=== PATIENT | male | born 1995 | race Caucasian/White ===

== ENCOUNTER 2020-11-24 20:13 | Emergency (ER) | payer OTHER ==
[~2020-11-24] VITALS: Ht 175.3 cm; Wt 117.9 kg
[2020-11-24] MEDS ORDERED: ABILIFY MAINTE300 MG IM (20:42)
[2020-11-24] MEDS ORDERED: PAXIL20 MG PO (20:42)
[2020-11-24] MEDS ORDERED: PROAIR HFA8.5 GM INH (20:43)
[2020-11-24 20:44] LABS: HEMOGLOBIN 15.5 gm/dL (14.0-18.0); MCH 31.8 pg (26.0-34.0); MCHC 33.6 g/dL (28.0-37.0); MCV 94.6 fL (80.0-100.0); RBC 4.86 mil/uL (4.50-6.00); RDW 13.5 % (10.5-14.5); WBC 9.1 thou/uL (4.0-11.0)
[2020-11-24] MEDS ORDERED: TUMS200 MG PO (20:45)
[2020-11-24] MEDS ORDERED: CLINDAMYCIN 1% TOP (20:47)
[2020-11-24] MEDS ORDERED: CLONAZEPAM 0.50.5 M1 PO (20:48)
[2020-11-24] MEDS ORDERED: DEPAKOTE250 MG PO (20:48)
[2020-11-24] MEDS ORDERED: FLONASE 0.05%50 MCG NARES (20:49)
[2020-11-24] MEDS ORDERED: LACTAID3000 UNI1 PO (20:50)
[2020-11-24] MEDS ORDERED: MILK OF MA400 MG/5 M PO (20:50)
[2020-11-24] MEDS ORDERED: ZYPREXA5 MG PO (20:51)
[2020-11-24 20:52] LABS: AMP/METHAMP Negative (Negative); BARBITURATES Negative (Negative); BENZODIAZEPINES Negative (Negative); COCAINE Negative (Negative); METHADONE Negative (Negative); OPIATES Negative (Negative); PCP Negative (Negative)
[2020-11-24] MEDS ORDERED: HALDOL5 MG/1 ML IM (20:53)
[2020-11-24] MEDS ORDERED: ZYPREXA IM (20:53)
[2020-11-24] MEDS ORDERED: ATIVAN2 MG/1 ML IM (20:54)
[2020-11-24] MEDS ORDERED: NICOTINE TRANSD14 M1 TRANSDERM (20:54)
[2020-11-24 20:55] LABS: ANION GAP 8 mmol/L (7-16); BUN 17 mg/dL (7-18); CALCIUM 8.9 mg/dL (8.5-10.1); CHLORIDE 107 mmol/L (98-107); CO2 27 mmol/L (21-32); CREATININE 1.4 mg/dL (0.7-1.3); GLUCOSE 75 mg/dL (74-106); POTASSIUM 3.8 mmol/L (3.5-5.1); SODIUM 142 mmol/L (136-145)
[2020-11-24] MEDS ORDERED: OMEPRAZOLE 20 M20 M1 PO (20:55)
[2020-11-24] MEDS ORDERED: GAS RELIEF80 MG PO (20:55)
[2020-11-24] MEDS ORDERED: ULTRAM 50MG TAB50 MG PO (20:57)
[2020-11-24] MEDS ORDERED: DESYREL150 MG PO (20:58)
[2020-11-24] MEDS ORDERED: TYLENOL325 MG PO (20:59)
[2020-11-24 21:01] LABS: ALBUMIN 3.9 g/dL (3.4-5.0); SALICYLATE < 2.8 mg/dL (2.8-20.0); SGOT 31 U/L (15-37); SGPT 19 U/L (16-63); TOTAL BILIRUBIN 0.3 mg/dL (0.2-1.0); TOTAL PROTEIN 6.8 g/dL (6.4-8.2)
[2020-11-24 22:02] VITALS: BP 109/63
== END 2020-11-24 22:03 | disposition short-term general hospital (02) ==
LOC: ER 20:13
PROVIDERS: Nurse Practitioner Family
DX: F91.9 Conduct disorder, unspecified (principal); Z79.2 Long term (current) use of antibiotics; Z79.899 Other long term (current) drug therapy; Z91.013 Allergy to seafood

== ENCOUNTER 2021-05-18 18:42 | Emergency (ER) | payer OTHER ==
[~2021-05-18] VITALS: Ht 182.9 cm; Wt 86.2 kg
[~2021-05-18 18:42] MED LIST: ABILIFY MAINTE300 MG IM; ATIVAN2 MG/1 ML IM; CLINDAMYCIN 1% TOP; CLONAZEPAM 0.50.5 M1 PO; DEPAKOTE250 MG PO; DESYREL150 MG PO; FLONASE 0.05%50 MCG NARES; GAS RELIEF80 MG PO; HALDOL5 MG/1 ML IM; LACTAID3000 UNI1 PO; MILK OF MA400 MG/5 M PO; NICOTINE TRANSD14 M1 TRANSDERM; OMEPRAZOLE 20 M20 M1 PO; PAXIL20 MG PO; PROAIR HFA8.5 GM INH; TUMS200 MG PO; TYLENOL325 MG PO; ULTRAM 50MG TAB50 MG PO; ZYPREXA IM; ZYPREXA5 MG PO
[2021-05-18 23:29] VITALS: BP 123/76
== END 2021-05-18 23:30 | disposition home or self-care (01) ==
LOC: ER 18:42
DX: S09.90XA Unspecified injury of head, initial encounter (principal); F90.9 Attention-deficit hyperactivity disorder, unspecified type; F32.9 Major depressive disorder, single episode, unspecified; Z79.899 Other long term (current) drug therapy; W22.8XXA Striking against or struck by other objects, initial encounter; Y93.39 Activity, other involving climbing, rappelling and jumping off; Y92.89 Other specified places as the place of occurrence of the external cause; Y99.8 Other external cause status